=== PATIENT | male | born 1940 | race Caucasian/White ===

== ENCOUNTER 2019-06-05 00:35 | Inpatient (IN) ==
[2019-06-05] MEDS ORDERED: Acetaminophen 325 MG TABLET PO PRN (02:33)
[2019-06-05] MEDS ORDERED: Naloxone 0.4 MG/ML INJ IVP PRN ×2 (02:33→03:02)
[2019-06-05] MEDS ORDERED: Ondansetron ODT 4 MG TAB.RAPDIS SL PRN (02:33)
[2019-06-05] MEDS ORDERED: 0.9 % Sodium Chloride 1,000 ML IVC SCH (03:15)
[2019-06-05] MEDS ORDERED: *HR* Dextrose 50 % in Water (Syg) 50 ML SYRINGE IVP PRN (03:24)
[2019-06-05] MEDS ORDERED: Dextrose Gel 15 GM/37.5 ML TUBE PO PRN ×2 (03:24)
[2019-06-05] MEDS ORDERED: D5% in Water 1,000 ML IVC PRN (03:24)
[2019-06-05] MEDS: 0.9 % Sodium Chloride 1,000 ML IVC SCH ×2 (05:05→17:39)
[2019-06-05 06:31] LABS: Basophils % 0.1 %; Eosinophils % 0.6 %; Hematocrit 42.1 % (37.5-50.1); Hemoglobin 14.7 g/dL (12.9-16.9); Immature Granulocytes % 0.3 % (0-4); Lymphocytes # 0.5 K/mcL (0.6-4.6); Lymphocytes % 7.2 %; Mean Corpuscular HGB Conc 34.9 g/dL (31.6-35.5); Mean Corpuscular Hemoglobin 33.2 pg (28.0-33.3); Mean Platelet Volume 10.9 fL (9.4-12.4); Monocytes # 0.5 K/mcL (0.0-1.3); Neutrophils # 5.8 K/mcL (1.6-8.9); Platelet Count 129 K/mcL (140-400); Red Blood Count 4.43 M/mcL (4.19-5.50); Red Cell Distribution Width 13.5 % (11.5-14.5); Segmented Neutrophils % 84.8 %; White Blood Count 6.8 K/mcL (4.3-11.1)
[2019-06-05 06:43] LABS: Prothrombin Time 51.8 Seconds (9.4-12.1)
[2019-06-05 06:44] LABS: INR 4.5
[2019-06-05 06:52] LABS: BUN/Creatinine Ratio 20 (6-26); Blood Urea Nitrogen 18 mg/dL (8-23); Calcium 9.1 mg/dL (8.6-10.3); Carbon Dioxide 28 mEq/L (23-29); Chloride 102 mEq/L (98-107); Glucose 161 mg/dL (70-105); Magnesium 1.7 mg/dL (1.6-2.6); Osmolality,Calculated 291 (280-300); Potassium 3.9 mEq/L (3.5-5.1); Sodium 138 mEq/L (136-145); eGFR For African Americans > 60 (> 60); eGFR For Non-African Americans > 60 (> 60)
[2019-06-05] MEDS ORDERED: *HR* Phytonadione 5 MG TABLET PO ONE (07:35)
[2019-06-05] MEDS: Insulin LISPRO 300 UNITS/3 ML VIAL SQ SCH ×3 (09:20→17:45)
[2019-06-05] MEDS ORDERED: Isovue-370 500 ML BOTTLE IVP ONE (09:42)
[2019-06-05 10:25] LABS: Bilirubin,Urine Negative (Negative); Blood,Urine Large (Negative); Clarity,Urine Cloudy (Clear); Color,Urine Yellow (Yellow); Glucose,Urine (UA) Normal (Normal); Ketones,Urine Trace mg/dL (Negative); Leukocyte Esterase,Urine Negative (Negative); Nitrite,Urine Negative (Negative); PH,Urine 5.5 pH Units (5.0-8.0); Protein,Urine Trace mg/dL (Neg-Trace); Specific Gravity,Urine 1.019 (1.010-1.025); Urobilinogen,Urine Normal (Normal)
[2019-06-05 10:27] LABS: Bacteria,Urine None Seen per hpf (None-Few); Hyaline Casts,Urine None Seen per lpf (None-Few); RBC,Urine 50-100 per hpf (0-3); Squamous Epithelial Cell,Urine None Seen per lpf (None-Few); WBC,Urine 0-3 per hpf (0-3)
[2019-06-05] MEDS ORDERED: Ipratropium/Albuterol Neb 3 ML IH PRN (11:10)
[2019-06-05 12:02] LABS: INR 4.5; Prothrombin Time 51.5 Seconds (9.4-12.1)
[2019-06-05] MEDS ORDERED: Azithromycin 500 MG in 0.9 % Sodium Chloride 250 ML IVPB SCH (13:00)
[2019-06-05] MEDS ORDERED: Perflutren Lipid Microsphere 1.3 ML in 0.9 % Sodium Chloride 8.7 ML IVP ONE (13:00)
[2019-06-05] MEDS: cefTRIAXone 1,000 MG in Water for inj. (sterile) 10 ML IVP SCH (13:02)
[2019-06-05] MEDS: *HR* OxyCODONE Immed Rel 5 MG TABLET PO PRN (17:59)
[2019-06-05 21:48] LABS: ABG Base Excess 4 mEq/L (-2 to 3); ABG HCO3 29 mEq/L (21-27); ABG Oxygen Saturation 87 % (95-98); ABG PCO2 46 mmHg (35-45); ABG PH 7.41 pH Units (7.32-7.45); ABG PO2 54 mmHg (85-104); ABG TCO2 31 mEq/L (20-26)
[2019-06-06] MEDS: *HR* OxyCODONE Immed Rel 5 MG TABLET PO PRN ×2 (00:48→00:59)
[2019-06-06] MEDS ORDERED: *HR* HYDROmorphone (PF) 1 MG/ML SYRINGE IVP ONE (05:41)
[2019-06-06 06:19] LABS: Basophils % 0.3 %; Eosinophils # 0.2 K/mcL (0.0-0.6); Eosinophils % 2.2 %; Hematocrit 40.1 % (37.5-50.1); Hemoglobin 13.7 g/dL (12.9-16.9); Immature Granulocytes % 0.2 % (0-4); Lymphocytes # 0.5 K/mcL (0.6-4.6); Lymphocytes % 5.5 %; Mean Corpuscular HGB Conc 34.2 g/dL (31.6-35.5); Mean Corpuscular Hemoglobin 33.7 pg (28.0-33.3); Mean Corpuscular Volume 98.8 fL (83.0-100.0); Mean Platelet Volume 10.7 fL (9.4-12.4); Monocytes # 0.5 K/mcL (0.0-1.3); Monocytes % 5.9 %; Neutrophils # 7.5 K/mcL (1.6-8.9); Platelet Count 111 K/mcL (140-400); Red Blood Count 4.06 M/mcL (4.19-5.50); Red Cell Distribution Width 13.5 % (11.5-14.5); Segmented Neutrophils % 85.9 %; White Blood Count 8.8 K/mcL (4.3-11.1)
[2019-06-06 06:31] LABS: INR 1.8; Prothrombin Time 20.9 Seconds (9.4-12.1)
[2019-06-06 06:39] LABS: Alanine Aminotransferase 20 Units/L (7-52); Albumin 3.7 g/dL (3.5-5.7); Albumin/Globulin Ratio 1.2 (1.1-2.2); Alkaline Phosphatase 82 Units/L (34-104); Aspartate Amino Transferase 31 Units/L (13-39); BUN/Creatinine Ratio 20 (6-26); Bilirubin,Total 1.5 mg/dL (0.3-1.0); Blood Urea Nitrogen 18 mg/dL (8-23); Carbon Dioxide 29 mEq/L (23-29); Chloride 99 mEq/L (98-107); Globulin 3.1 g/dL (2.4-3.5); Glucose 163 mg/dL (70-105); Osmolality,Calculated 287 (280-300); Potassium 3.9 mEq/L (3.5-5.1); Sodium 136 mEq/L (136-145); Total Protein 6.8 g/dL (6.4-8.9); eGFR For African Americans > 60 (> 60); eGFR For Non-African Americans > 60 (> 60)
[2019-06-06] MEDS: Insulin LISPRO 300 UNITS/3 ML VIAL SQ SCH ×2 (07:25→10:41)
[2019-06-06] MEDS ORDERED: *HR* Heparin 5,000 UNIT/ML VIAL IVP PRN ×4 (07:35→17:49)
[2019-06-06] MEDS ORDERED: Furosemide 40 MG/4 ML VIAL IVP ONE (07:35)
[2019-06-06] MEDS ORDERED: MethylPREDNISolone 40 MG/ML VIAL IVP SCH (07:39)
[2019-06-06] MEDS ORDERED: Heparin 25,000 UNIT/250 ML D5W 25,000 UNIT/250 ML IV.SOLN IVC SCH (07:45)
[2019-06-06] MEDS: cefTRIAXone 1,000 MG in Water for inj. (sterile) 10 ML IVP SCH (08:11)
[2019-06-06 08:56] LABS: Troponin I 0.03 ng/mL (< 0.04)
[2019-06-06] MEDS: Ipratropium/Albuterol Neb 3 ML IH SCH ×5 (10:04→23:18)
[2019-06-06 10:21] LABS: ABG Base Excess 3 mEq/L (-2 to 3); ABG HCO3 27 mEq/L (21-27); ABG Oxygen Saturation 91 % (95-98); ABG PCO2 40 mmHg (35-45); ABG PH 7.44 pH Units (7.32-7.45); ABG PO2 60 mmHg (85-104); ABG TCO2 28 mEq/L (20-26)
[2019-06-06] MEDS ORDERED: Dexamethasone 4 MG/ML VIAL ONE (13:40)
[2019-06-06] MEDS ORDERED: Ondansetron 4 MG/2 ML VIAL ONE (13:40)
[2019-06-06] MEDS ORDERED: Lidocaine -MPF 2% 2 ML VIAL ONE (13:40)
[2019-06-06] MEDS ORDERED: *HR* Succinylcholine 200 MG/10 ML VIAL IVP ONE (13:40)
[2019-06-06] MEDS ORDERED: Lidocaine HCL 4 ML Topical Solution (Laryng-O-Jet Kit Sterile Pak) TP ONE (13:41)
[2019-06-06] MEDS ORDERED: Famotidine 20 MG/2 ML VIAL ONE (14:17)
[2019-06-06] MEDS ORDERED: Acetaminophen IV 1,000 MG/100 ML INFUS..BTL ONE (14:17)
[2019-06-06] MEDS ORDERED: *HR* Propofol 200 MG/20 ML VIAL IVP ONE (14:38)
[2019-06-06] MEDS ORDERED: Ethanol\\Acetic Acid\\Na Ace\\Ben 1,000 ML IRRIG.SOLN IR ONE (15:28)
[2019-06-06] MEDS ORDERED: Vancomycin 1,000 MG VIAL ONE (15:28)
[2019-06-06] MEDS ORDERED: *HR* FentaNYL (PF) 100 MCG/2 ML VIAL ONE (15:40)
[2019-06-06] MEDS ORDERED: ceFAZolin 2,000 MG in Water for inj. (sterile) 20 ML IVP ONE (15:43)
[2019-06-06] MEDS ORDERED: *HR* PHENYLEPHRINE 1,000 MCG/10 ML SYRINGE IVP ONE (15:58)
[2019-06-06] MEDS ORDERED: EPHEDrine 50 MG/ML VIAL ONE (16:00)
[2019-06-06] MEDS ORDERED: *HR* HYDROMORPHONE 2 MG/ML VIAL ONE (16:22)
[2019-06-06] MEDS ORDERED: Dextrose Gel 15 GM/37.5 ML TUBE PO PRN ×2 (17:49)
[2019-06-06] MEDS ORDERED: *HR* OxyCODONE Immed Rel 5 MG TABLET PO PRN (17:49)
[2019-06-06] MEDS ORDERED: Naloxone 0.4 MG/ML INJ IVP PRN (17:49)
[2019-06-06] MEDS ORDERED: *HR* Dextrose 50 % in Water (Syg) 50 ML SYRINGE IVP PRN (17:49)
[2019-06-06] MEDS ORDERED: Ondansetron ODT 4 MG TAB.RAPDIS SL PRN (17:49)
[2019-06-06] MEDS ORDERED: D5% in Water 1,000 ML IVC PRN (17:49)
[2019-06-06] MEDS: Heparin 25,000 UNIT/250 ML D5W 25,000 UNIT/250 ML IV.SOLN IVC SCH (20:20)
[2019-06-06] MEDS: Budesonide/Formoterol 160/4.5 1 PUFF INH IH SCH (20:31)
[2019-06-06] MEDS ORDERED: Budesonide/Formoterol 160/4.5 1 PUFF INH IH SCH (22:00)
[2019-06-07] MEDS ORDERED: ceFAZolin 2,000 MG in 0.9 % Sodium Chloride 100 ML IVPB SCH
[2019-06-07 02:09] LABS: Hematocrit 36.2 % (37.5-50.1); Hemoglobin 12.4 g/dL (12.9-16.9); Immature Granulocytes % 0.4 % (0-4); Lymphocytes # 0.4 K/mcL (0.6-4.6); Lymphocytes % 4.6 %; Mean Corpuscular HGB Conc 34.3 g/dL (31.6-35.5); Mean Corpuscular Hemoglobin 33.7 pg (28.0-33.3); Mean Corpuscular Volume 98.4 fL (83.0-100.0); Mean Platelet Volume 10.9 fL (9.4-12.4); Monocytes # 0.3 K/mcL (0.0-1.3); Monocytes % 4.1 %; Neutrophils # 7.1 K/mcL (1.6-8.9); Platelet Count 107 K/mcL (140-400); Red Blood Count 3.68 M/mcL (4.19-5.50); Red Cell Distribution Width 13.4 % (11.5-14.5); Segmented Neutrophils % 90.9 %; White Blood Count 7.8 K/mcL (4.3-11.1)
[2019-06-07 02:31] LABS: BUN/Creatinine Ratio 29 (6-26); Blood Urea Nitrogen 26 mg/dL (8-23); Calcium 8.9 mg/dL (8.6-10.3); Carbon Dioxide 29 mEq/L (23-29); Chloride 100 mEq/L (98-107); Glucose 199 mg/dL (70-105); Osmolality,Calculated 294 (280-300); Potassium 3.9 mEq/L (3.5-5.1); Sodium 137 mEq/L (136-145); eGFR For African Americans > 60 (> 60); eGFR For Non-African Americans > 60 (> 60)
[2019-06-07 03:08] LABS: Folate 20.5 ng/mL (3.0-16.0)
[2019-06-07] MEDS: Ipratropium/Albuterol Neb 3 ML IH SCH ×5 (04:17→20:47)
[2019-06-07 04:34] LABS: Heparin anti-factor XA UFH 0.33 IU/mL (0.30-0.70)
[2019-06-07 07:31] LABS: INR 1.5; Prothrombin Time 17.1 Seconds (9.4-12.1)
[2019-06-07] MEDS: Budesonide/Formoterol 160/4.5 1 PUFF INH IH SCH ×2 (07:41→20:47)
[2019-06-07] MEDS: Cyanocobalamin (B-12) 1,000 MCG TABLET PO SCH (08:32)
[2019-06-07] MEDS: Insulin LISPRO 300 UNITS/3 ML VIAL SQ SCH ×3 (08:34→17:50)
[2019-06-07] MEDS: cefTRIAXone 1,000 MG in Water for inj. (sterile) 10 ML IVP SCH (08:34)
[2019-06-07] MEDS: Azithromycin 500 MG in 0.9 % Sodium Chloride 250 ML IVPB SCH (12:27)
[2019-06-07] MEDS: Heparin 25,000 UNIT/250 ML D5W 25,000 UNIT/250 ML IV.SOLN IVC SCH (13:55)
[2019-06-07] MEDS ORDERED: *HR* Metoprolol 5 MG/5 ML VIAL IVP ONE (17:44)
[2019-06-07] MEDS: Acetaminophen 325 MG TABLET PO PRN (17:50)
[2019-06-07] MEDS ORDERED: Warfarin perPT PO PRN (18:00)
[2019-06-07] MEDS ORDERED: *HR* Warfarin 4 MG TABLET PO ONE (18:00)
[2019-06-07] MEDS ORDERED: *HR* LORazepam 2 MG/ML VIAL IVP ONE (23:38)
[2019-06-08] MEDS: Ipratropium/Albuterol Neb 3 ML IH SCH ×6 (00:25→19:56)
[2019-06-08 02:25] LABS: INR 1.4; Prothrombin Time 15.7 Seconds (9.4-12.1)
[2019-06-08 02:26] LABS: Basophils % 0.2 %; Eosinophils # 0.2 K/mcL (0.0-0.6); Eosinophils % 2.5 %; Hematocrit 29.8 % (37.5-50.1); Immature Granulocytes % 0.3 % (0-4); Lymphocytes # 0.9 K/mcL (0.6-4.6); Lymphocytes % 13.9 %; Mean Corpuscular HGB Conc 33.9 g/dL (31.6-35.5); Mean Corpuscular Hemoglobin 33.2 pg (28.0-33.3); Mean Platelet Volume 11.3 fL (9.4-12.4); Monocytes # 0.7 K/mcL (0.0-1.3); Monocytes % 10.3 %; Neutrophils # 4.7 K/mcL (1.6-8.9); Platelet Count 116 K/mcL (140-400); Red Blood Count 3.04 M/mcL (4.19-5.50); Red Cell Distribution Width 13.5 % (11.5-14.5); Segmented Neutrophils % 72.8 %; White Blood Count 6.5 K/mcL (4.3-11.1)
[2019-06-08 02:30] LABS: Hemoglobin 10.1 g/dL (12.9-16.9)
[2019-06-08 02:43] LABS: BUN/Creatinine Ratio 36 (6-26); Blood Urea Nitrogen 27 mg/dL (8-23); Calcium 8.5 mg/dL (8.6-10.3); Carbon Dioxide 28 mEq/L (23-29); Chloride 103 mEq/L (98-107); Glucose 197 mg/dL (70-105); Osmolality,Calculated 303 (280-300); Potassium 3.1 mEq/L (3.5-5.1); Sodium 141 mEq/L (136-145); eGFR For African Americans > 60 (> 60); eGFR For Non-African Americans > 60 (> 60)
[2019-06-08] MEDS: Heparin 25,000 UNIT/250 ML D5W 25,000 UNIT/250 ML IV.SOLN IVC SCH ×2 (08:40→23:27)
[2019-06-08] MEDS: cefTRIAXone 1,000 MG in Water for inj. (sterile) 10 ML IVP SCH (08:41)
[2019-06-08] MEDS: Cyanocobalamin (B-12) 1,000 MCG TABLET PO SCH (08:42)
[2019-06-08] MEDS: Insulin LISPRO 300 UNITS/3 ML VIAL SQ SCH ×3 (08:43→17:22)
[2019-06-08 10:01] LABS: Magnesium 1.7 mg/dL (1.6-2.6)
[2019-06-08] MEDS: Budesonide/Formoterol 160/4.5 1 PUFF INH IH SCH ×2 (11:08→19:56)
[2019-06-08] MEDS: Azithromycin 500 MG in 0.9 % Sodium Chloride 250 ML IVPB SCH (13:57)
[2019-06-08] MEDS ORDERED: *HR* Warfarin 4 MG TABLET PO ONE (18:00)
[2019-06-09] MEDS: Ipratropium/Albuterol Neb 3 ML IH SCH ×6 (00:02→20:15)
[2019-06-09 05:12] LABS: Hemoglobin 10.9 g/dL (12.9-16.9); Mean Corpuscular HGB Conc 35.2 g/dL (31.6-35.5); Mean Corpuscular Hemoglobin 33.9 pg (28.0-33.3); Mean Corpuscular Volume 96.3 fL (83.0-100.0); Platelet Count 130 K/mcL (140-400); Red Blood Count 3.22 M/mcL (4.19-5.50); Red Cell Distribution Width 13.8 % (11.5-14.5); White Blood Count 4.8 K/mcL (4.3-11.1)
[2019-06-09 05:18] LABS: INR 1.4; Prothrombin Time 16.4 Seconds (9.4-12.1)
[2019-06-09 05:27] LABS: BUN/Creatinine Ratio 25 (6-26); Blood Urea Nitrogen 17 mg/dL (8-23); Calcium 8.6 mg/dL (8.6-10.3); Carbon Dioxide 30 mEq/L (23-29); Chloride 101 mEq/L (98-107); Glucose 151 mg/dL (70-105); Osmolality,Calculated 294 (280-300); Potassium 3.8 mEq/L (3.5-5.1); Sodium 140 mEq/L (136-145); eGFR For African Americans > 60 (> 60); eGFR For Non-African Americans > 60 (> 60)
[2019-06-09] MEDS: Budesonide/Formoterol 160/4.5 1 PUFF INH IH SCH ×2 (08:12→20:16)
[2019-06-09] MEDS: Cyanocobalamin (B-12) 1,000 MCG TABLET PO SCH (08:57)
[2019-06-09] MEDS: cefTRIAXone 1,000 MG in Water for inj. (sterile) 10 ML IVP SCH (08:58)
[2019-06-09] MEDS: Insulin LISPRO 300 UNITS/3 ML VIAL SQ SCH ×3 (08:59→17:48)
[2019-06-09] MEDS: Azithromycin 500 MG in 0.9 % Sodium Chloride 250 ML IVPB SCH (12:46)
[2019-06-09] MEDS: Heparin 25,000 UNIT/250 ML D5W 25,000 UNIT/250 ML IV.SOLN IVC SCH (15:51)
[2019-06-09] MEDS ORDERED: *HR* Warfarin 4 MG TABLET PO ONE (18:00)
[2019-06-09] MEDS: Acetaminophen 325 MG TABLET PO PRN (21:06)
[2019-06-10] MEDS: Ipratropium/Albuterol Neb 3 ML IH SCH ×7 (00:05→23:57)
[2019-06-10] MEDS ORDERED: Melatonin 3 MG TABLET PO ONE (00:32)
[2019-06-10 02:26] LABS: INR 1.8; Prothrombin Time 20.9 Seconds (9.4-12.1)
[2019-06-10] MEDS: Heparin 25,000 UNIT/250 ML D5W 25,000 UNIT/250 ML IV.SOLN IVC SCH ×2 (07:00→21:39)
[2019-06-10] MEDS: Acetaminophen 325 MG TABLET PO PRN (07:44)
[2019-06-10] MEDS: Cyanocobalamin (B-12) 1,000 MCG TABLET PO SCH (07:44)
[2019-06-10] MEDS: cefTRIAXone 1,000 MG in Water for inj. (sterile) 10 ML IVP SCH (07:45)
[2019-06-10] MEDS: Insulin LISPRO 300 UNITS/3 ML VIAL SQ SCH ×3 (07:53→15:54)
[2019-06-10] MEDS: Budesonide/Formoterol 160/4.5 1 PUFF INH IH SCH ×2 (08:03→19:53)
[2019-06-10] MEDS ORDERED: *HR* OxyCODONE Immed Rel 5 MG TABLET PO ONE (10:59)
[2019-06-10] MEDS: Azithromycin 500 MG in 0.9 % Sodium Chloride 250 ML IVPB SCH (11:47)
[2019-06-10] MEDS ORDERED: *HR* Warfarin 4 MG TABLET PO ONE (18:00)
[2019-06-11] MEDS: Ipratropium/Albuterol Neb 3 ML IH SCH ×2 (03:53→07:51)
[2019-06-11 06:04] LABS: INR 2.5
[2019-06-11 07:45] VITALS: BP 138/68
[2019-06-11] MEDS: Cyanocobalamin (B-12) 1,000 MCG TABLET PO SCH (07:54)
[2019-06-11] MEDS: cefTRIAXone 1,000 MG in Water for inj. (sterile) 10 ML IVP SCH (07:55)
[2019-06-11] MEDS: Insulin LISPRO 300 UNITS/3 ML VIAL SQ SCH (08:00)
[2019-06-11] MEDS: Acetaminophen 325 MG TABLET PO PRN (10:39)
== END 2019-06-11 11:52 | DRG 469 ==
LOC: 3NENU → SUATTDRO 01:47
PROVIDERS: ADMIT Student in an Organized Health Care Education/Training Program; ATTEND Internal Medicine